=== PATIENT | male | born 1985 | race African-American/Black ===

== ENCOUNTER 2016-12-19 09:20 | Emergency (ER) | payer SELFPAY ==
[2016-12-19] MEDS ORDERED: BENZONATATE 100 MG CAPSULE PO ONE (09:44)
--- NOTE | 2016-12-19 09:49 | ER Document Report ---
HPI - HPI Patient complains to provider of: dental pain Onset: Other Onset/Duration: Persistent Quality of pain: Achy Severity: Severe Pain Level: 4 Context: Patient presents emergency department with complaints of right-sided dental pain. He reports he had right-sided headaches for over a year. Finally discovered it was his teeth. He reports he has top and bottom right side dental pain. He has been taking Tylenol and ibuprofen without relief of symptoms. 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 He reports he just moved to the [facility] Tuesday. Denies other symptoms such as fever vomiting diarrhea. - DERM Skin Color: Normal Past Medical History - General Information source: Patient - Social History Smoking Status: Unknown if Ever Smoked Cigarette use (# per day): No Frequency of alcohol use: None Drug Abuse: None Occupation: contractor Family History: None Patient has suicidal ideation: No Patient has homicidal ideation: No - Medical History Medical History: Negative Renal/ Medical History: Denies: Hx Peritoneal Dialysis Surgical Hx: Negative Vertical Provider Document - CONSTITUTIONAL Agree With Documented VS: Yes Exam Limitations: No Limitations General Appearance: WD/WN, No Apparent Distress - INFECTION CONTROL TRAVEL OUTSIDE OF THE [place] IN LAST 30 DAYS: No - HEENT HEENT: Atraumatic, Normocephalic Mouth Diagram: 1 - widespread dental decay- no erythema, swelling or pustule 2 - c/o pain, widespread dental decay, opens mouth wide, clear voice, no trismus, no ludwigs, no erythema,swelling or pustules - NECK Neck: Normal Inspection, Supple. negative: Lymphadenopathy-Left, Lymphadenopathy-Right - RESPIRATORY Respiratory: Breath Sounds Normal, No Respiratory Distress O2 Sat by Pulse Oximetry: 99 - CARDIOVASCULAR Cardiovascular: Regular Rate, Regular Rhythm - MUSCULOSKELETAL/EXTREMETIES Musculoskeletal/Extremeties: SIRENA SUAREZ - NEURO Level of Consciousness: Awake, Alert, Appropriate Motor/Sensory: No Motor Deficit - DERM Integumentary: Warm, Dry Course - Re-evaluation Re-evalutation: 12/19/16 09:50 Patient will be given Tessalon Perles to see if that alleviates his pain. We also discussed dentist in this area. Patient reports he is going out of town tomorrow and will not be able to follow up with any dentist for a few weeks. 12/19/16 10:18 Patient reports Jacky Saravia did not help his pain at all. - Vital Signs Vital signs: Temp Pulse Resp BP Pulse Ox 98.2 F 58 L 12 129/77 H 99 12/19/16 09:25 12/19/16 09:25 12/19/16 09:25 12/19/16 09:25 12/19/16 09:25 Discharge - Discharge Clinical Impression: Pain, dental, Elevated blood pressure reading Condition: Stable Disposition: HOME, SELF-CARE Instructions: Penicillin V K ([facility]), Toothache ([facility]), Acetaminophen with Codeine ([facility]) Additional Instructions: *You have been evaluated for dental pain *Take medications as prescribed *Follow up with a dentist within one week for full evaluation *Return to ED for worsening condition, changes, needs Monitor your blood pressure. Your blood pressure was elevated today. This may be because you were anxious, in pain or because you need medication. It is important to follow up with your primary care provider for full evaluation. Prescriptions: Acetaminophen with Codeine [Tylenol #3 Tablet] 1 each PO Q4HP PRN #20 tablet PRN Reason: Penicillin V Potassium [Penicillin Vk 500 mg Tablet] 500 mg PO BID #20 tablet Forms: Elevated Blood Pressure
[2016-12-19 10:34] VITALS: BP 130/78
== END 2016-12-19 10:34 | disposition home or self-care (01) ==
LOC: ER 09:20
DX: K08.9 Disorder of teeth and supporting structures, unspecified (principal); R03.0 Elevated blood-pressure reading, without diagnosis of hypertension; R51 Headache
CPT/HCPCS: 99282

== ENCOUNTER 2017-02-24 00:37 | Emergency (ER) | payer SELFPAY ==
[2017-02-24 00:46] VITALS: BP 126/80
== END 2017-02-24 03:39 | disposition left against medical advice (07) ==
LOC: ER 00:37
DX: Z53.9 Procedure and treatment not carried out, unspecified reason (principal); M79.673 Pain in unspecified foot

== ENCOUNTER 2017-10-20 11:11 | Emergency (ER) | payer SELFPAY ==
--- NOTE | 2017-10-20 12:01 | ER Document Report ---
ED General - General Chief Complaint: Flu Symptoms Stated Complaint: FLU LIKE SYMPTOMS Time Seen by Provider: 10/20/17 11:38 Mode of Arrival: Ambulatory Information source: Patient Notes: 32 yr old male presents with complaints of 1 week duration. Pt notes a productive cough, green thick which has improved. pt admits ot fevers chills which has since resolved. pt admits ot mild body aches TRAVEL OUTSIDE OF THE [place] IN LAST 30 DAYS: No - HPI Onset: Last week Onset/Duration: Better Quality of pain: Achy Severity: Mild Pain Level: 1 Associated symptoms: Body/muscle aches, Chills, Productive cough, Fever, Sinus pain/drainage, Shortness of breath Exacerbated by: Denies Relieved by: Denies Similar symptoms previously: Yes Recently seen / treated by doctor: Yes - Related Data Allergies/Adverse Reactions: No Known Allergies Allergy (Verified 10/20/17 11:16) Past Medical History - Social History Smoking Status: Current Some Day Smoker Cigarette use (# per day): Yes Chew tobacco use (# tins/day): No Smoking Education Provided: No Frequency of alcohol use: Social Drug Abuse: None Family History: None Patient has suicidal ideation: No Patient has homicidal ideation: No Neurological Medical History: Reports: Hx Migraine Renal/ Medical History: Denies: Hx Peritoneal Dialysis - Immunizations Hx Diphtheria, Pertussis, Tetanus Vaccination: Yes Review of Systems - Review of Systems Notes: REVIEW OF SYSTEMS: ALL OTHER SYSTEMS REVIEWED AND NEGATIVE. Dictation was performed using [employer] voice recognition software PHYSICAL EXAMINATION: GENERAL: Well-appearing, well-nourished and in no acute distress. HEAD: Atraumatic, normocephalic. EYES: Pupils equal round and reactive to light, extraocular movements intact, sclera anicteric, conjunctiva are normal. ENT: Sinus tenderness upon palpation NECK: Normal range of motion, supple without lymphadenopathy LUNGS: Breath sounds clear to auscultation bilaterally and equal. No wheezes rales or rhonchi. HEART: Regular rate and rhythm without murmurs ABDOMEN: Soft, nontender, nondistended abdomen. No guarding, no rebound. No masses appreciated. Musculoskeletal: Normal range of motion, no pitting or edema. No cyanosis. NEUROLOGICAL: Cranial nerves grossly intact. Normal speech, normal gait. Normal sensory, motor exams PSYCH: Normal mood, normal affect. SKIN: Warm, Dry, normal turgor, no rashes or lesions noted. Physical Exam - Vital signs Vitals: Temp Pulse Resp BP Pulse Ox 99.1 F 82 16 125/80 97 10/20/17 11:18 10/20/17 11:18 10/20/17 11:18 10/20/17 11:18 10/20/17 11:18 Course - Re-evaluation Re-evalutation: 10/20/17 12:00 Patient's examination is quite benign, he looks well is in no distress, x-ray pending to rule out any obvious pneumonia 10/20/17 13:27 X-ray noted no acute abnormality, patient will be treated for sinusitis otherwise well-appearing no distress After performing a Medical Screening Examination, I estimate there is LOW risk for ACUTE CORONARY SYNDROME, PULMONARY EMBOLI, RESPIRATORY FAILURE, SEPSIS OR MENINGITIS, thus I consider the discharge disposition reasonable. I have reevaluated this patient multiple times and no significant life threatening changes are noted. The patient and I have discussed the diagnosis and risks, and we agree with discharging home with close follow-up. We also discussed returning to the Emergency Department immediately if new or worsening symptoms occur. We have discussed the symptoms which are most concerning (e.g., changing or worsening pain, trouble swallowing or breathing, neck stiffness, fever) that necessitate immediate return. - Vital Signs Vital signs: Temp Pulse Resp BP Pulse Ox 99.1 F 82 16 125/80 97 10/20/17 11:18 10/20/17 11:18 10/20/17 11:18 10/20/17 11:18 10/20/17 11:18 - Diagnostic Test Radiology reviewed: Image reviewed, Reports reviewed Discharge - Discharge Clinical Impression: Productive cough Sinusitis Qualifiers: Sinusitis location: frontal Chronicity: acute Recurrence: non-recurrent Qualified Code(s): J01.10 - Acute frontal sinusitis, unspecified Condition: Stable Disposition: HOME, SELF-CARE Instructions: Sinusitis ([facility]) Additional Instructions: Follow up with your physician tomorrow for further care or return to the ED IMMEDIATELY if symptoms worsen or new concerns occur. If you cannot afford to follow up with your primary care physician a list of low cost clinics have been provided at the end of your discharge papers as well. Prescriptions: Azithromycin 250 mg PO ASDIR PRN #6 tablet PRN Reason:
--- NOTE | 2017-10-20 12:49 | RADIOLOGY REPORT (SQ) ---
EXAM DESCRIPTION: CHEST PA/LAT COMPLETED DATE/TIME: 10/20/2017 12:16 pm REASON FOR STUDY: cough COMPARISON: None. EXAM PARAMETERS: NUMBER OF VIEWS: two views TECHNIQUE: Digital Frontal and Lateral radiographic views of the chest acquired. RADIATION DOSE: NA LIMITATIONS: none FINDINGS: LUNGS AND PLEURA: No opacities, masses or pneumothorax. No pleural effusion. MEDIASTINUM AND HILAR STRUCTURES: No masses or contour abnormalities. HEART AND VASCULAR STRUCTURES: Heart normal size. No evidence for failure. BONES: No acute findings. HARDWARE: None in the chest. OTHER: No other significant finding. IMPRESSION: NO SIGNIFICANT RADIOGRAPHIC FINDING IN THE CHEST. TECHNICAL DOCUMENTATION: JOB ID: [id number] [employer]- All Rights Reserved Reading location - IP/workstation name: [email or web address]
[2017-10-20 13:38] VITALS: BP 125/84
== END 2017-10-20 13:35 | disposition home or self-care (01) ==
LOC: ER 11:11
DX: J01.10 Acute frontal sinusitis, unspecified (principal); R05 Cough; K04.7 Periapical abscess without sinus; K08.89 Other specified disorders of teeth and supporting structures; M79.1 Myalgia; F17.210 Nicotine dependence, cigarettes, uncomplicated
CPT/HCPCS: 71046; 99283